=== PATIENT | female | born 1960 | race Caucasian/White ===

== ENCOUNTER → 2023-06-26 08:33 | Outpatient (REF) | payer OTHER, SELFPAY | LOC: HWWDC 08:33 | PROVIDERS: ATTENDING PHYSICIAN Obstetrics & Gynecology Gynecology; FAMILY PHYSICIAN Internal Medicine | DX: Z12.31 Encounter for screening mammogram for malignant neoplasm of breast (principal) | CPT/HCPCS: 77063; 77067 ==

== ENCOUNTER → 2024-01-04 09:33 | Outpatient (REF) | payer MEDICARE, SELFPAY | LOC: MRI 3T 09:33 | PROVIDERS: ATTENDING PHYSICIAN Physical Medicine & Rehabilitation; FAMILY PHYSICIAN Internal Medicine | DX: M54.16 Radiculopathy, lumbar region (principal) | CPT/HCPCS: 72148 ==

== ENCOUNTER 2024-02-13 15:13 | Day surgery (SDC) | payer MEDICARE, SELFPAY ==
[2024-02-13] VITALS (15 sets, daily range): BP systolic 103–178; BP diastolic 61–100; BMI 20.7
--- NOTE | 2024-02-13 08:31 | ED.GENMED ---
History of Present Illness
General
Chief Complaint: Rectal Bleeding
Source: patient
Exam Limitations: none
Time Seen by Provider: 02/13/24 08:08
History of Present Illness
History of Present Illness:
63-year-old female relatively healthy presents complaining of leaking from her anus as well as protrusion in the anal area. She has had decreased appetite for some time. She states she lost about 5 pounds. She denies abdominal pain. Patient was
seen by the family doctor yesterday and was told she had some type of protrusion from her rectum. She has an appoint with colorectal in 6 days but she started bleeding yesterday. She noted bright red blood with multiple bowel movements. This
morning she felt lightheaded and fatigued. No fever. No abdominal pain. Of note, patient had an MRI of her lumbar spine that was done over the summer. Incidentally they found a 1.4 cm mass in the duodenal bulb possibilities could include polyp
versus adenocarcinoma. She had colonoscopy in 2021. She is due for another colonoscopy in 2026.
Past History
Past History
ED Past Medical History: Other (IBS, Glut[place] problems, L4-5 arthritis); Negative Asthma, HTN, Hypercholesterolemia or NIDDM
ED Past Surgical History: Appendectomy and Gynecological (Uterine ablation)
Social History
Tobacco: Non-smoker
Alcohol: Occasional
Personal:
Living: with family
Phy Exam
Physical Exam
Physical Exam:
General: Well-appearing but anxious female no acute respiratory distress
HEENT: Normocephalic atraumatic
Heart: Regular rate and rhythm no murmurs
Lungs: Clear no wheeze
Abdomen soft nontender nondistended no guarding rebound
Extremities: No cyanosis or edema
Skin: Warm no rash
Rectal exam: This was performed with female veneer jointer offbearer in the room. There is a firm tender two centimeter diameter mass protruding from the anus. No significant active bleeding
Course
Orders/Labs/Results
Orders:
Orders
02/13/24 Breakfast
NPO
Allow oral meds: Yes
Allow clear liquids: No
NPO with Ice Chips: Yes
02/13/24 09:16
Complete Blood Count/With Diff Urgent
Comprehensive Metabolic Panel Urgent
02/13/24 10:52
Admit Patient As Directed
Co-Sign Provider:
Level of Care: Post Proc/Surg Recovery
Assign to:: Medical/Surgical
Physician / Group: Deric Ellis MD
Diagnosis: thrombosed hemorrhoid
Expected length of stay greater than two midnights?: No
Reason for Overnight Stay: Bleeding/Bleeding Risk
Code Status As Directed
Resuscitation Status: Full Code
HYDROmorphone [Dilaudid] 0.25 mg IV Q4HPRN PRN
HYDROmorphone [Dilaudid] 0.5 mg IV Q4HPRN PRN
Ketorolac [Toradol] 15 mg IV Q6HPRN PRN
PRN Pain Medication Management As Directed
May give lesser potent ordered pain med per pt: Yes
preference::
Protocol:: Medication orders for pain may be administered in a
manner that supports deferring to patient preference
when the pt is:
- Requesting an ordered lesser potent pain medication.
Least to most potent pain medications are defined
as: acetaminophen < NSAID < tramadol < opioids
(morphine, oxycodone, hydromorphone).
- Requesting a lesser dose of the same medication IF
ORDERED.
- Requesting a less intrusive route of administration
if both routes are prescribed by the provider (PO <
IV).
02/13/24 10:55
Activity As Directed
Activity Level: Out of Bed- Ad Lauren
Anti-embolism (BELLO) Hose As Directed
Type: Knee high
Pneumatic Compression Sleeves As Directed
Type: Knee high
Vital Signs As Directed
Frequency: Post-operative guidelines
Rx Incentive Spirometry [RESP] Routine
Frequency: q1h while awake
# of times per hour: 10
DX Deep Vein Thrombosis Video Routine
02/13/24 11:00
Normosol (Mult Electrolytes) [Normosol-R/Plasmalyte-A] 1,000 ml IV 75 mls/hr
Abnormal Lab Results
02/13/24
09:16
WBC 12.2 H 10^3/uL
(4.8-10.8)
MPV 12.1 H fL
(7.4-10.4)
Abs Immat Gran (auto) 0.1 H 10^3/uL
(0-0.05)
Absolute Neuts (auto) 10.0 H 10^3/uL
(1.4-6.5)
Absolute Lymphs (auto) 0.8 L 10^3/uL
(1.2-3.4)
Absolute Monos (auto) 1.3 H 10^3/uL
(0.1-0.6)
Neutrophils % 81.6 H %
(42.2-75.2)
Lymphocytes % 6.4 L %
(20.5-51.1)
Monocytes % 10.6 H %
(1.7-9.3)
Glucose 113 H mg/dl
(70-99)
02/13/24 09:16
02/13/24 09:16
Vital Signs
Initial and Last Documented VS:
Initial Vital Signs
Temp Pulse Resp BP Pulse Ox
98.7 F 93 16 178/100 98
02/13/24 07:55 02/13/24 07:55 02/13/24 07:55 02/13/24 07:55 02/13/24 07:55
Last Documented Vital Signs
Temp Pulse Resp BP Pulse Ox
98.7 F 83 16 144/86 99
02/13/24 07:55 02/13/24 10:00 02/13/24 07:55 02/13/24 09:27 02/13/24 09:29
MDM/Problems Addressed
Differential Diagnosis Includes:
Red rectal bleeding with protrusion. Consider hemorrhoids versus rectal prolapse
Patient was lightheaded and fatigue today associated with the bleeding. Will check labs.
*Critical Care Note
Total Time (30-74mins, 75-104mins- exclusive of procedures): Not Applicable
Update Note
Update Note:
Labs reviewed. Discussed findings with colorectal surgeon who saw the patient as well. They will take the patient to the operating room today for an excision of his thought to be thrombosed internal hemorrhoid.
ED Attending Note
-
Portions of this chart may have been created with voice recognition software.� Occasional wrong word or��sound alike� substitutions may have occurred due to the inherent limitations of voice recognition software.
Discharge Plan
Departure
Patient Disposition: Admit
Date of Disposition: 02/13/24
Time of Disposition: 11:02
Admit to: OR
Presentation/result/management discussed w/ accepting MD/DO: Hospitalist
Discharge Problem:
Hemorrhoids, internal, thrombosed
Prescriptions:
No Action
B-complex with vitamin C 1 CAPLET tablet
1 cap PO DAILY
acetaminophen [Tylenol] 325 mg Tablet
650 mg PO Q4HPRN PRN (Reason: mild pain)
loratadine 10 mg Tablet
10 mg PO DAILY
ibandronate 150 mg Tablet
150 mg PO QMONTH
Visbiome 112.5 billion cell Capsule
1 cap PO DAILY
Referrals:
Karmen Llanos MD [Family Provider] -
Interventions
Interventions:
*Risk Screen - Suicide Last Done: 02/13/24 07:55
*General Assessment Last Done: 02/13/24 09:33
*Neglect/Abuse Screening Last Done: 02/13/24 07:55
*ED COVID-19 Vaccine History Last Done: 02/13/24 07:55
TP-Okxvet-Aheriuqelj Assessment Last Done: 02/13/24 09:29
ED- Cardiac Assessment Last Done: 02/13/24 09:28
ED- Pulmonary Assessment Last Done: 02/13/24 09:28
Discharge Date and Time
Print Language: PORTUGUESE
[2024-02-13 09:23] LABS: % Basophils 0.4 % (0-2); % Eosinophils 0.6 % (0-6); % Immature Granulocytes 0.4 % (0-0.5); % Lymphocytes 6.4 % (20.5-51.1); % Monocytes 10.6 % (1.7-9.3); % Neutrophils 81.6 % (42.2-75.2); Absolute Basophils 0.1 10^3/uL (0-0.2); Absolute Eosinophils 0.1 10^3/uL (0-0.7); Absolute Immature Granulocytes 0.1 10^3/uL (0-0.05); Absolute Lymphocytes 0.8 10^3/uL (1.2-3.4); Absolute Monocytes 1.3 10^3/uL (0.1-0.6); Hematocrit 42.1 % (37.0-47.0); Hemoglobin 14.3 g/dL (12.0-16.0); Mean Corpuscular Hgb 30.2 pg (27.0-31.0); Mean Platelet Volume 12.1 fL (7.4-10.4); Nucleated Red Blood Cells % 0 %; Platelet Count 229 10^3/uL (130-400); Red Blood Cell Count 4.73 10^6/uL (4.20-5.40); Red Cell Dist. Width 12.8 % (11.5-14.5); White Blood Cell Count 12.2 10^3/uL (4.8-10.8)
[2024-02-13 09:35] LABS: ALT (SGPT) 21 U/L (0-35); AST (SGOT) 26 U/L (14-36); Albumin 4.1 g/dl (3.5-5.0); Alkaline Phosphatase 44 U/L (38-126); Blood Urea Nitrogen 8 mg/dl (7-17); Calcium 9.7 mg/dl (8.4-10.2); Carbon Dioxide 29 mmol/L (22-30); Chloride 103 mmol/L (98-107); Estimated Creatinine Clearance 77 ml/min; Glucose 113 mg/dl (70-99); Potassium 4.5 mmol/L (3.5-5.1); Sodium 140 mmol/L (135-145); Total Bilirubin 0.5 mg/dl (0.2-1.3); Total Protein 6.6 g/dl (6.3-8.2); eGFR > 60.00
--- NOTE | 2024-02-13 10:40 | CON.CRS ---
Consultation
-
Performing Provider: Deric Ellis MD
Reason for Consultation: Anal bleeding/mass
Medical History
-
History of Present Illness:
Patient is a 63-year-old female with PMH of IBS�mixed type, hyperthyroidism (not on medication), osteoporosis who presents with 1 day of acute onset anal mass associated with leakage and pain. She states that she has had lumps/hemorrhoids around
the bottom for many years with occasional bleeding. However, this time, she developed a large bump that is usually not there associated with bleeding. The bleeding was noted after a BM this morning and continued in her underwear. She described it
as bright red. She denies any blood mixed in with the stool or blood clots. She denies any fevers, chest pain or shortness of breath. On average, she has 1-2 BMs per day associated with occasional straining. However, due to her IBS, this can
vary between constipation and diarrhea and having multiple bowel movements in a day. Her last colonoscopy was 11/[address] Dickinson, which showed cecal AVMs, transverse colon HP, internal hemorrhoids and recommended to repeat in 5 years.
Past Medical History
Past Medical History: Other (As above)
Past Surgical History: Other (Appendectomy, uterine ablation, Mohs surgery, right knee 2014)
Social History
Tobacco: Non-Smoker
Alcohol: Occasional
Drug: None
Family History
Family History: Other (Denies any CRC; grandmother had colon surgery for unknown reason)
Allergies / Home Medications
Allergy/AdvReac Type Severity Reaction Status Date / Time
Sulfa (Sulfonamide Allergy Severe Hives Verified 02/13/24 08:02
Antibiotics)
sulfamethoxazole Allergy Severe Hives Verified 02/13/24 08:02
erythromycin base Allergy Diarrhea Verified 02/13/24 08:02
gluten Allergy Nausea / Verified 02/13/24 08:02
Vomiting
Penicillins Allergy Diarrhea Verified 02/13/24 08:02
tetracycline Allergy Diarrhea Verified 02/13/24 08:02
Tetracyclines Allergy Diarrhea Verified 02/13/24 08:02
trimethoprim Allergy Unknown Verified 02/13/24 08:02
NOT.[id number] - Not Allergy Unknown Uncoded 02/13/24 08:02
Converted 7. See Text.
�Medication �Instructions �Recorded �Confirmed �Type
B-complex with vitamin C 1 cap PO DAILY 09/21/20 02/13/24 History
Lactobac no.2-Bifidobac no.1-S. 1 cap PO DAILY 02/13/24 02/13/24 History
thermo 112.5 billion cell capsule
(Visbiome)
acetaminophen 325 mg tablet 650 mg PO Q4HPRN PRN mild pain 02/13/24 02/13/24 History
(Tylenol)
ibandronate 150 mg tablet 150 mg PO QMONTH 02/13/24 02/13/24 History
loratadine 10 mg tablet 10 mg PO DAILY 02/13/24 02/13/24 History
Review of Systems
-
A 10 point review of systems was completed, and was negative except as per HPI.
Physical Exam
Vital Signs
Temp 98.7 F 02/13/24 07:55
Pulse 83 02/13/24 10:00
Resp Rate 16 02/13/24 07:55
Blood pressure 144/86 02/13/24 09:27
SaO2 99 02/13/24 09:29
02/12/24 02/13/24 02/14/24
06:59 06:59 06:59
Actual Weight 53 kg
Body Mass Index (BMI) 20.7
Lab Results / Allergies
02/13/24 09:16
02/13/24 09:16
WBC 12.2 10^3/uL (4.8-10.8) H 02/13/24 09:16
Hgb 14.3 g/dL (12.0-16.0) 02/13/24 09:16
Hct 42.1 % (37.0-47.0) 02/13/24 09:16
Plt Count 229 10^3/uL (130-400) 02/13/24 09:16
Abs Immat Gran (auto) 0.1 10^3/uL (0-0.05) H 02/13/24 09:16
Neutrophils % 81.6 % (42.2-75.2) H 02/13/24 09:16
Allergy/AdvReac Type Severity Reaction Status Date / Time
Sulfa (Sulfonamide Allergy Severe Hives Verified 02/13/24 08:02
Antibiotics)
sulfamethoxazole Allergy Severe Hives Verified 02/13/24 08:02
erythromycin base Allergy Diarrhea Verified 02/13/24 08:02
gluten Allergy Nausea / Verified 02/13/24 08:02
Vomiting
Penicillins Allergy Diarrhea Verified 02/13/24 08:02
tetracycline Allergy Diarrhea Verified 02/13/24 08:02
Tetracyclines Allergy Diarrhea Verified 02/13/24 08:02
trimethoprim Allergy Unknown Verified 02/13/24 08:02
NOT.[id number] - Not Allergy Unknown Uncoded 02/13/24 08:02
Converted 7. See Text.
Physical Exam
General: Well Developed, Well Nourished and No Apparent Distress
HEENT: Normocephalic and Atraumatic
Respiratory: Non Labored Respirations
GI: Soft, Non Tender and Non Distended
Rectal: Other (External exam-large AML skin tag; thrombosed, somewhat firm, about 1.5 cm mass with mild tenderness to palpation, prolapsed at the anal verge, dark/blackish appearance, no purulence, easily reducible; no thrombosed external
hemorrhoids noted; on [place], no other palpable, good sphincter tone )
Skin: Warm and Dry
Neuro: Awake, Alert and AO x 3
Data Reviewed
-
Labs: Labs Reviewed by me
Assessment / Plan
-
63-year-old female with PMH of IBS�mixed type, hyperthyroidism (not on medication), osteoporosis who presents with 1 day of acute onset anal mass associated with leakage and pain, WBC 12.2, denies fevers or significant anal pain; found to have what
appears to be a thrombosed internal prolapsed hemorrhoid; last colonoscopy was 11/[address] Dickinson, which showed cecal AVMs, transverse colon HP, internal hemorrhoids and recommended to repeat in 5 years; not frankly gangrenous or necrotic, but
likely some breakdown of the overlying anal mucosa associated with ischemia
� Thrombosed prolapsed internal hernia, easily reducible, not frankly necrotic or infected, but concern for ischemia
�Explained the treatment options, including watchful waiting and surgery; risks with watchful waiting include worsening pain and ischemia, development of gangrenous hemorrhoid associated with infection; risks with surgery include bleeding,
infection, urinary retention, injury to nearby structures, such as the anal sphincter, anal stenosis, and recurrent hemorrhoids
�After lengthy discussion, patient preferred moving forward with surgery
�Continue NPO, will start gentle IVF
� Continue pain control with Toradol and Dilaudid as needed
� Okay for OOB/encourage IS
� Plan for SDS; if requires overnight stay, will admit postoperatively for observation
[2024-02-13] MEDS: NORMOSOL-R/PLASMALYTE-A 1000 IV (12:12)
--- NOTE | 2024-02-13 16:04 | PTCARENOTE ---
Received patient from ER via stretcher around 1515 in stable condition. Patient oriented to room. Patient to OR around 1540.
--- NOTE | 2024-02-13 17:14 | W.IMMPOSTOP ---
Addendum entered and electronically signed by Deric Ellis MD 02/13/24 18:06:
Error: in Procedure Performed, excision of thrombosed *internal* hemorrhoid
Original Note:
Surgical Immed Post Op Note
-
Primary Surgeon: Deric Ellis MD
Assisting Surgeon: None
Pre-op Diagnosis: Thrombosed internal hemorrhoid
Post-op Diagnosis: Thrombosed internal hemorrhoid, prolapsing internal hemorrhoids
Procedure Performed: Exam under anesthesia, excision of thrombosed external hemorrhoid, suture hemorrhoidopexy x 3, bilateral pudendal nerve block
Anesthesia Type: Sedation with local
Specimen / Cultures: Thrombosed internal hemorrhoid
Estimated Blood Loss: 15 mL
Complications: None
Operative Findings: Thrombosed prolapsing internal hemorrhoid noted in the right anterior quadrant; patient also had prolapsing internal hemorrhoids in the left lateral, right lateral and right anterior positions
--- NOTE | 2024-02-13 17:30 | OR.RPT ---
Operative Report
Operative Report
DATE OF OPERATION: 02/13/2024
SURGEON: Deric Ellis MD
PREOPERATIVE DIAGNOSIS: Thrombosed prolapsing internal hemorrhoid
POSTOPERATIVE DIAGNOSIS: Thrombosed prolapsing internal hemorrhoid, non-thrombosed prolapsing internal hemorrhoids x 3
OPERATION: Exam under anesthesia, closed hemorrhoidectomy, suture hemorrhoidopexy x 3, bilateral pudendal nerve block
ASSISTANTS:
1. None
ANESTHESIA: MAC w/ local
ESTIMATED BLOOD LOSS: 15 mL
FINDINGS:
1. 1.5 cm thrombosed prolapsing internal hemorrhoid noted in the right anterior position; performed Cuello�type excisional hemorrhoidectomy
2. 3 small internal hemorrhoids noted to prolapse on withdrawal of the Hill-Cuello retractor; performed suture hemorrhoidopexy of the left lateral, right lateral, right posterior internal hemorrhoids
SPECIMENS:
1. Thrombosed internal hemorrhoid
DRAINS: None
COMPLICATIONS: None
INDICATIONS: The patient is a 63-year-old female who presented with 1 day of perianal bleeding and swelling. On exam, she was noted to have a thrombosed internal hemorrhoid that was prolapsed at the anal verge. The hemorrhoid was reducible, but
it appeared dark purple/black, concerning for developing ischemia or necrosis. There was no suggestion of infection. Therefore, the patient was recommended to have surgery. I explained that my plan is to perform an excisional hemorrhoidectomy for
the internal hemorrhoid of concern. I may also perform a hemorrhoidopexy or hemorrhoid ligation if the hemorrhoid appears amenable, or if I identify any other concerning internal hemorrhoids. The operation was discussed with the patient in detail,
including the risks, benefits and alternatives. Risks described included, but not limited to, bleeding, infection, urinary retention, damage to nearby structures such as the anal sphincter, fecal incontinence, anal stenosis, recurrence, and
anesthetic risks. The patient understood and agreed to proceed. The consent was signed and placed in the chart.
PROCEDURE IN DETAIL: The patient was taken to the operating room. The patient was then placed on the operating table in prone position. Sequential compression devices were placed bilaterally. Sedation was commenced without complication. Two seat
belts were secured around the legs and upper back. The buttocks were taped apart. The perineum was prepped and draped in the usual fashion. A time-out was then performed verifying the correct patient, procedure, operative site, positioning, and
special equipment.
Local anesthesia used was a mixture of 60 mL of 0.25% Marcaine epinephrine and 0.6 mg of dexamethasone. 40 mL was injected perianally at the beginning of the case. The anorectal exam was performed assessing all four quadrants of the anal canal
using Hill-Cuello retractors in progressively increasing size. I immediately identified the thrombosed prolapsing internal hemorrhoid in the right anterior position. There was no purulence, but the hemorrhoid appeared dark purple/black,
concerning for necrosis of the overlying anal mucosa. These changes were limited to the internal portion of the hemorrhoid column. There was a small, slightly swollen, non-thrombosed external component within this column. Therefore, I elected to
perform a Cuello-type excisional hemorrhoidectomy. I also identified small internal hemorrhoids in the left lateral, right lateral and right posterior positions. On withdrawal of the Hill-Cuello retractor, it was noted that each of these
internal hemorrhoids prolapsed down the anal canal. None appeared thrombosed or ischemic. Therefore, I elected to perform suture hemorrhoidopexy for each of these.
I proceeded with an excisional hemorrhoidectomy for the right anterior thrombosed internal hemorrhoid. I began by grasping the hemorrhoid with 3 clamps and elevating it. The anoderm was incised immediately around the distal aspect of the
hemorrhoid. Hemostasis was achieved with electrocautery. Using Metzenbaum scissors, the hemorrhoid was carefully dissected off of the sphincter complex, avoiding injury to it. A large curved clamp was placed under the hemorrhoid, taking care to
avoid clamping any sphincter. A 15 blade was used to excise the hemorrhoid off the clamp. The hemorrhoid was passed off for specimen. A 2-0 Vicryl was then thrown around the pedicle and tied down, leaving a long tail. The mucosa was
reapproximated using this 2-0 Vicryl in a running fashion to the level of the dentate line. This was then run back to the pedicle in a locking fashion. The 2-0 Vicryl was then tied down to the tail around the pedicle, ligating it an additional
time. Another 2-0 Vicryl was used to close the defect of the anoderm in a running fashion. Hemostasis was confirmed.
I elected to proceed with suture ligation and hemorrhoidopexy for the remaining internal hemorrhoids in the left lateral, right lateral and right posterior positions. Using a Hill-Cuello retractor, the hemorrhoid was exposed. I ligated the pedicle
of the hemorrhoid with a 2-0 Vicryl in a figure-of-8 fashion, leaving the tail long. I took running mucosal bites of the hemorrhoid distally toward the dentate line, stopping 1 cm above the dentate line. I tied this down to the long tail in order to
pexy the hemorrhoid. Hemostasis was confirmed. The remaining internal hemorrhoids were ligated and pexied in a similar fashion.
The anal canal was irrigated copiously with saline, checking for hemostasis, which was ensured. The remaining 20 mL of local were injected. 5 mL was injected bilaterally for a pudendal nerve block. 10 mL was injected around the surgical site and
perianally. The smallest Hill-Cuello was used to check hemostasis once more, which was confirmed.
At this point, the procedure was complete. All needle, sponge and instrument counts were correct. The patient tolerated the procedure well and was transferred to the recovery room in stable condition with gauze dressing in place secured with silk
tape.
DICTATED BY: Deric Ellis MD
== END 2024-02-13 19:28 | disposition home or self-care (01) ==
LOC: PACU 15:13
PROVIDERS: Physician Assistant; ATTENDING PHYSICIAN Surgery; EMERGENCY PHYSICIAN Emergency Medicine; FAMILY PHYSICIAN Hospitalist
DX: K64.5 Perianal venous thrombosis (principal); K58.2 Mixed irritable bowel syndrome; K62.5 Hemorrhage of anus and rectum; K64.4 Residual hemorrhoidal skin tags
CPT/HCPCS: 46260; 88304; 80053; 85025; 99285

== ENCOUNTER 2024-04-23 06:32 | Day surgery (SDC) | payer MEDICARE, SELFPAY ==
[2024-04-23 08:10] VITALS: BP 142/83; BMI 20.6
[2024-04-23 08:27] VITALS: BMI 20.6
[2024-04-23 10:58] VITALS: BP 110/76
[2024-04-23 11:00] VITALS: BP 110/77
[2024-04-23 11:15] VITALS: BP 127/82
[2024-04-23 11:30] VITALS: BP 123/89
== END 2024-04-23 11:55 | disposition home or self-care (01) ==
LOC: GI 06:32
PROVIDERS: ATTENDING PHYSICIAN Internal Medicine Gastroenterology
DX: K31.89 Other diseases of stomach and duodenum (principal); R93.3 Abnormal findings on diagnostic imaging of other parts of digestive tract
CPT/HCPCS: 43238; 43239; 88172; 88173; 88305; 88177; 88341; 88342

== ENCOUNTER → 2024-05-20 14:20 | Outpatient (REF) | payer MEDICARE, SELFPAY | LOC: HWRAD 14:20 | PROVIDERS: ATTENDING PHYSICIAN Hospitalist; FAMILY PHYSICIAN Internal Medicine | DX: M81.0 Age-related osteoporosis without current pathological fracture (principal) | CPT/HCPCS: 77080 ==